=== PATIENT | female | born 2000 | race Caucasian/White ===

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

== ENCOUNTER 2021-05-18 12:11 | Emergency (ER) | payer OTHER ==
[2021-05-18 12:20] VITALS: TEMP 98.7
--- NOTE | 2021-05-18 12:26 | ED ---
General Adult HPI - General Source: EMS (And patient's roommate) Mode of arrival: EMS Limitations: no limitations <Lamine Marsh - Last Filed: 05/18/21 14:38> <Manfred Szymanski - Last Filed: 05/18/21 16:07> - General Chief complaint: Altered Mental Status Stated complaint: Altered Mental Status Time Seen by Provider: 05/18/21 12:17 - History of Present Illness Initial comments: Patient is a pleasant 21-year-old female presenting to the emergency department with change in mental status. Patient's roommate was unable to wake her up today. They did find a bottle of Lexapro with approximately 20 missing. Patient is not verbal at this time and provides no additional history. Roommate states patient has been depressed recently. No reported trauma. (Lamine Marsh) - Related Data Home Medications Medication Instructions Recorded Confirmed Escitalopram [Lexapro] 10 mg PO DAILY 05/18/21 05/18/21 Levonor 0.15mg-Ee 20-25-30 Mcg 1 tab PO DAILY 05/18/21 05/18/21 Allergies Allergy/AdvReac Type Severity Reaction Status Date / Time Penicillins Allergy Swelling Verified 12/17/20 22:47 Review of Systems ROS Other: All systems not noted in ROS Statement are negative. Limitations: ROS unobtainable due to patients medical condition <Lamine Marsh - Last Filed: 05/18/21 14:38> ROS Other: All systems not noted in ROS Statement are negative. <Manfred Szymanski - Last Filed: 05/18/21 16:07> ROS Statement: Those systems with pertinent positive or pertinent negative responses have been documented in the HPI. Past Medical History Past Medical History: No Reported History History of Any Multi-Drug Resistant Organisms: None Reported Past Surgical History: Tonsillectomy Past Psychological History: No Psychological Hx Reported Smoking Status: Current every day smoker Past Alcohol Use History: None Reported Past Drug Use History: None Reported <Lamine Marsh - Last Filed: 05/18/21 14:38> General Exam Limitations: no limitations General appearance: alert Head exam: Present: atraumatic, normocephalic Eye exam: Present: normal appearance, PERRL Neck exam: Present: normal inspection. Absent: tenderness Respiratory exam: Present: normal lung sounds bilaterally Cardiovascular Exam: Present: regular rate, normal rhythm GI/Abdominal exam: Present: soft. Absent: tenderness Extremities exam: Present: normal inspection Neurological exam: Present: alert, other (Nonverbal. Not following commands.). Absent: motor sensory deficit (Limited exam. No flaccid weakness.) Psychiatric exam: Present: flat affect Skin exam: Present: normal color <Lamine Marsh - Last Filed: 05/18/21 14:38> Course <Manfred Szymanski - Last Filed: 05/18/21 16:07> Vital Signs 05/18/21 12:12 Temperature 98.7 F Pulse Rate 79 Respiratory 18 Rate Blood Pressure 127/77 O2 Sat by Pulse 100 Oximetry - Reevaluation(s) Reevaluation #1: 05/18/21 16:05 Patient was endorsed to me by ED physician Dr. Marsh (secondary to shift change) with the EPS nurse's evaluation still pending. Dr. Marsh has medically cleared the patient. EPS nurse states that they feel that the patient can be safely discharged home at this time with action plan and outpatient psychiatric referral. Will discharge patient home at this time. (Manfred Szymanski) EKG Findings - EKG Comments: EKG Findings:: No sinus rhythm with a rate of 71. MN 128. QRS 80. QT 32. QTC 4:15. Normal axis. Normal QRS. No acute ST change. <Lamine Marsh - Last Filed: 05/18/21 14:38> Medical Decision Making - Lab Data Result diagrams: 05/18/21 12:38 05/18/21 12:38 - Radiology Data Radiology results: report reviewed (Computed tomography scan of the brain reveals no acute process), image reviewed (Chest x-ray shows no acute process) <Lamine Marsh - Last Filed: 05/18/21 14:38> - Lab Data Result diagrams: 05/18/21 12:38 05/18/21 12:38 <Manfred Szymanski - Last Filed: 05/18/21 16:07> - Medical Decision Making Patient reevaluated and is alert and admits to feeling depressed. She states earlier she did not want to wake up. Patient denies any ingestion. Patient cleared for mental health evaluation. (Lamine Marhs) - Lab Data Lab Results 05/18/21 05/18/21 05/18/21 Range/Units 12:38 12:38 12:38 WBC 5.3 (4.0-11.0) k/uL RBC 4.88 (3.80-5.40) m/uL Hgb 14.3 (11.4-16.0) gm/dL Hct 42.5 (34.0-46.0) % MCV 87.1 (80.0-100.0) fL MCH 29.4 (25.0-35.0) pg MCHC 33.7 (31.0-37.0) g/dL RDW 12.7 (11.5-15.5) % Plt Count 266 (150-450) k/uL MPV 8.0 Neutrophils % 49 % Lymphocytes % 36 % Monocytes % 8 % Eosinophils % 4 % Basophils % 0 % Neutrophils # 2.6 (1.3-7.7) k/uL Lymphocytes # 1.9 (1.0-4.8) k/uL Monocytes # 0.4 (0-1.0) k/uL Eosinophils # 0.2 (0-0.7) k/uL Basophils # 0.0 (0-0.2) k/uL PT 11.7 (9.0-12.0) sec INR 1.1 (<1.2) Sodium (137-145) mmol/L Potassium (3.5-5.1) mmol/L Chloride (98-107) mmol/L Carbon Dioxide (22-30) mmol/L Anion Gap mmol/L BUN (7-17) mg/dL Creatinine (0.52-1.04) mg/dL Est GFR (CKD-EPI)AfAm (>60 ml/min/1.73 sqM) Est GFR (CKD-EPI)NonAf (>60 ml/min/1.73 sqM) Glucose (74-99) mg/dL Calcium (8.4-10.2) mg/dL Total Bilirubin (0.2-1.3) mg/dL AST (14-36) U/L ALT (4-34) U/L Alkaline Phosphatase (38-126) U/L Creatine Kinase (30-135) U/L Total Protein (6.3-8.2) g/dL Albumin (3.5-5.0) g/dL HCG, Quant mIU/mL Urine Color Yellow Urine Appearance Clear (Clear) Urine pH 6.5 (5.0-8.0) Ur Specific [place] 1.019 (1.001-1.035) Urine Protein Negative (Negative) Urine Glucose (UA) Negative (Negative) Urine Ketones Negative (Negative) Urine Blood Negative (Negative) Urine Nitrite Negative (Negative) Urine Bilirubin Negative (Negative) Urine Urobilinogen <2.0 (<2.0) mg/dL Ur Leukocyte Esterase Small H (Negative) Urine RBC 1 (0-5) /hpf Urine WBC 2 (0-5) /hpf Ur Squamous Epith Cells 1 (0-4) /hpf Urine Mucus Rare H (None) /hpf Salicylates mg/dL Urine Opiates Screen Not Detected (NotDetected) Ur Oxycodone Screen Not Detected (NotDetected) Urine Methadone Screen Not Detected (NotDetected) Ur Propoxyphene Screen Not Detected (NotDetected) Acetaminophen ug/mL Ur Barbiturates Screen Not Detected (NotDetected) U Tricyclic Antidepress Not Detected (NotDetected) Ur Phencyclidine Scrn Not Detected (NotDetected) Ur Amphetamines Screen Not Detected (NotDetected) U Methamphetamines Scrn Not Detected (NotDetected) U Benzodiazepines Scrn Not Detected (NotDetected) Urine Cocaine Screen Not Detected (NotDetected) U Marijuana (THC) Screen Not Detected (NotDetected) Serum Alcohol mg/dL Coronavirus (PCR) (Not Detectd) 05/18/21 05/18/21 Range/Units 12:38 12:53 WBC (4.0-11.0) k/uL RBC (3.80-5.40) m/uL Hgb (11.4-16.0) gm/dL Hct (34.0-46.0) % MCV (80.0-100.0) fL MCH (25.0-35.0) pg MCHC (31.0-37.0) g/dL RDW (11.5-15.5) % Plt Count (150-450) k/uL MPV Neutrophils % % Lymphocytes % % Monocytes % % Eosinophils % % Basophils % % Neutrophils # (1.3-7.7) k/uL Lymphocytes # (1.0-4.8) k/uL Monocytes # (0-1.0) k/uL Eosinophils # (0-0.7) k/uL Basophils # (0-0.2) k/uL PT (9.0-12.0) sec INR (<1.2) Sodium 138 (137-145) mmol/L Potassium 4.4 (3.5-5.1) mmol/L Chloride 109 H (98-107) mmol/L Carbon Dioxide 20 L (22-30) mmol/L Anion Gap 9 mmol/L BUN 13 (7-17) mg/dL Creatinine 0.67 (0.52-1.04) mg/dL Est GFR (CKD-EPI)AfAm >90 (>60 ml/min/1.73 sqM) Est GFR (CKD-EPI)NonAf >90 (>60 ml/min/1.73 sqM) Glucose 79 (74-99) mg/dL Calcium 9.7 (8.4-10.2) mg/dL Total Bilirubin 0.6 (0.2-1.3) mg/dL AST 31 (14-36) U/L ALT 25 (4-34) U/L Alkaline Phosphatase 59 (38-126) U/L Creatine Kinase 72 (30-135) U/L Total Protein 7.0 (6.3-8.2) g/dL Albumin 4.3 (3.5-5.0) g/dL HCG, Quant <2.4 mIU/mL Urine Color Urine Appearance (Clear) Urine pH (5.0-8.0) Ur Specific [place] (1.001-1.035) Urine Protein (Negative) Urine Glucose (UA) (Negative) Urine Ketones (Negative) Urine Blood (Negative) Urine Nitrite (Negative) Urine Bilirubin (Negative) Urine Urobilinogen (<2.0) mg/dL Ur Leukocyte Esterase (Negative) Urine RBC (0-5) /hpf Urine WBC (0-5) /hpf Ur Squamous Epith Cells (0-4) /hpf Urine Mucus (None) /hpf Salicylates <1.0 mg/dL Urine Opiates Screen (NotDetected) Ur Oxycodone Screen (NotDetected) Urine Methadone Screen (NotDetected) Ur Propoxyphene Screen (NotDetected) Acetaminophen <10.0 ug/mL Ur Barbiturates Screen (NotDetected) U Tricyclic Antidepress (NotDetected) Ur Phencyclidine Scrn (NotDetected) Ur Amphetamines Screen (NotDetected) U Methamphetamines Scrn (NotDetected) U Benzodiazepines Scrn (NotDetected) Urine Cocaine Screen (NotDetected) U Marijuana (THC) Screen (NotDetected) Serum Alcohol <10 mg/dL Coronavirus (PCR) Not Detected (Not Detectd) Disposition Is patient prescribed a controlled substance at d/c from ED?: No <Lamine Mrash - Last Filed: 05/18/21 14:38> Is patient prescribed a controlled substance at d/c from ED?: No Time of Disposition: 16:07 <Manfred Szymanski - Last Filed: 05/18/21 16:07> Clinical Impression: Depression Disposition: HOME SELF-CARE Condition: Stable Instructions (If sedation given, give patient instructions): Depression (DC) Additional Instructions: Return to the ER immediately should you develop thoughts of hurting herself or others, any significant pain, shortness of breath, feeling dizzy or faint, or new or worsening symptoms. Follow up closely with your primary care provider, as well as psychiatry. Referrals: Hunter Batres MD [STAFF PHYSICIAN] - 1-2 days
[2021-05-18 12:49] LABS: Basophils % (A) 0 %; Eosinophils # (A) 0.2 k/uL (0-0.7); Eosinophils % (A) 4 %; HCT 42.5 % (34.0-46.0); HGB 14.3 gm/dL (11.4-16.0); Lymphocytes # (A) 1.9 k/uL (1.0-4.8); Lymphocytes % (A) 36 %; MCH 29.4 pg (25.0-35.0); MCHC 33.7 g/dL (31.0-37.0); MCV 87.1 fL (80.0-100.0); Monocytes # (A) 0.4 k/uL (0-1.0); Monocytes % (A) 8 %; Neutrophils # (A) 2.6 k/uL (1.3-7.7); Neutrophils % (A) 49 %; Platelet Count 266 k/uL (150-450); RBC 4.88 m/uL (3.80-5.40); RDW 12.7 % (11.5-15.5); WBC 5.3 k/uL (4.0-11.0)
[2021-05-18 12:51] LABS: Appearance,Urine Clear (Clear); Bilirubin,Urine Negative (Negative); Blood,Urine Negative (Negative); Color,Urine Yellow; Glucose,Urine (UA) Negative (Negative); Ketones,Urine Negative (Negative); Leukocyte Esterase,Urine Small (Negative); Mucus,Urine Rare /hpf; Nitrite,Urine Negative (Negative); PH, Urine 6.5 (5.0-8.0); Protein,Urine Negative (Negative); RBC,Urine 1 /hpf (0-5); Specific Gravity,Urine 1.019 (1.001-1.035); Squamous Epithelial Cell,Urine 1 /hpf (0-4); Urobilinogen,Urine <2.0 mg/dL (<2.0); WBC,Urine 2 /hpf (0-5)
[2021-05-18 12:54] LABS: INR 1.1 (<1.2); Prothrombin Time 11.7 sec (9.0-12.0)
[2021-05-18 13:01] LABS: ALT 25 U/L (4-34); AST 31 U/L (14-36); Acetaminophen <10.0 ug/mL; African American GFR (CKD) >90 (>60 ml/min/1.73 sqM); Albumin 4.3 g/dL (3.5-5.0); Alcohol <10 mg/dL; Alkaline Phosphatase 59 U/L (38-126); Anion Gap 9 mmol/L; Blood Urea Nitrogen 13 mg/dL (7-17); Calcium 9.7 mg/dL (8.4-10.2); Carbon Dioxide 20 mmol/L (22-30); Chloride 109 mmol/L (98-107); Creatine Kinase 72 U/L (30-135); Glucose 79 mg/dL (74-99); Non-African American GFR(CKD) >90 (>60 ml/min/1.73 sqM); Potassium 4.4 mmol/L (3.5-5.1); Salicylate <1.0 mg/dL; Sodium 138 mmol/L (137-145); Total Bilirubin 0.6 mg/dL (0.2-1.3)
[2021-05-18 13:03] LABS: Amphetamine Screen,Urine Not Detected (NotDetected); Barbiturate Screen,Urine Not Detected (NotDetected); Benzodiazepines Screen,Urine Not Detected (NotDetected); Cocaine Screen,Urine Not Detected (NotDetected); Methadone Screen, Urine Not Detected (NotDetected); Opiate Screen,Urine Not Detected (NotDetected); Oxycodone Screen, Urine Not Detected (NotDetected); Phencyclidine Screen,Urine Not Detected (NotDetected); Tricyclic Antidepressant,Urine Not Detected (NotDetected); Urn Cannabinoid Scrn Not Detected (NotDetected)
--- NOTE | 2021-05-18 13:03 | XR ---
EXAMINATION TYPE: XR chest 1V portable DATE OF EXAM: 05/18/2021 COMPARISON: NONE HISTORY: Acute mental status change. TECHNIQUE: Single frontal view of the chest is obtained. FINDINGS: There is no focal air space opacity, pleural effusion, or pneumothorax seen. The cardiac silhouette size is within normal limits. The osseous structures are intact. IMPRESSION: No acute process.
[2021-05-18 13:16] LABS: HCG,Quantitative Serum <2.4 mIU/mL
--- NOTE | 2021-05-18 14:27 | CT ---
EXAMINATION TYPE: CT brain wo con DATE OF EXAM: 05/18/2021 COMPARISON: None available HISTORY: AMS CT DLP: 1094.4 mGycm. Automated Exposure Control for Dose Reduction was Utilized. TECHNIQUE: Multiple contiguous axial CT images of the head were performed from the skull base through the vertex without the administration of intravenous contrast. 2-D sagittal and coronal reformats we re obtained. FINDINGS: No acute intracranial hemorrhage, mass effect, or midline shift. The ventricles and sulci are within normal limits in size. Gonzalez-white differentiation is preserved. No CT evidence of acute l arge vessel territorial ischemia. Calvarium appears intact. The globes are intact and the visualized sinuses are clear. Mildly prominent adenoid tissue. IMPRESSION: Negative contrast enhanced head CT exam.
[2021-05-18 16:18] VITALS: BP 113/72; PULSE 71; RESP 18
== END 2021-05-18 16:20 | disposition home or self-care (01) ==
LOC: EC 12:11
DX: F32.9 Major depressive disorder, single episode, unspecified (principal); F17.200 Nicotine dependence, unspecified, uncomplicated; Z88.0 Allergy status to penicillin
CPT/HCPCS: 36415; 70450; 71045; 80053; 80143; 80179; 80306; 80320; 81001; 82550; 84702; 85025; 85610; 87635; 93005; 99285

== ENCOUNTER → 2021-07-21 | Outpatient (CLI) | payer OTHER ==
--- NOTE | 2021-07-21 18:48 | US ---
EXAMINATION TYPE: Ultrasound OB <= 14 week fetus DATE OF EXAM: 07/21/2021 2:40 PM COMPARISON: NONE CLINICAL HISTORY: 21-year-old female Z36 Confirm dates. EXAM PERFORMED: Transabdominal (TA) FINDINGS: EXAM MEASUREMENTS: GESTATIONAL AGE / DATING Physician Established: Not yet established Dates by LMP: (7 weeks/6 days) EDC: 03-03-21 Dates by First Scan: No previous this is first scan Dates by Current Scan for: (7 weeks/4 days) EDC: 03-05-21 MATERNAL ANATOMY Uterus: 9.2 x 4.7 x 6.6cm Right Ovary: 2.1 x 1.9 x 1.6cm Left Ovary: 2.9 x 1.9 x 1.6cm Post CDS / Adnexa: wnl Presence of free fluid: no GESTATION / SURVEY CRL: 1.4cm (7 weeks/4 days) Yolk Sac (normal less than 6mm): 3mm Heart Rate: 167 bpm Rhythm: Normal IUP: Viable IUP Age Appropriate Anatomy Cord Insertion: Too early to visualize Limbs: Too early to visualize Calvarium: Too early to visualize Date of LMP: 05-27-21 Beta HcG (if available): Not available at this time IMPRESSION: 1. Single live intrauterine with estimated gestational age of 7 weeks 6 days by LMP. Curren t ultrasound biometry is concordant (7 weeks 4 days) by CRL. 2. Complete survey recommended at 18-20 weeks.
== END | disposition home or self-care (01) ==
LOC: RADUSWWP 14:22
PROVIDERS: ATTEND Obstetrics & Gynecology
DX: Z36.87 Encounter for antenatal screening for uncertain dates (principal); Z3A.01 Less than 8 weeks gestation of pregnancy
CPT/HCPCS: 76801

== ENCOUNTER 2021-07-23 08:15 | Emergency (ER) | payer OTHER ==
[2021-07-23 08:38] VITALS: RESP 18; TEMP 98.2
--- NOTE | 2021-07-23 09:24 | ED ---
General Adult HPI - General Chief complaint: Vaginal Bleeding Stated complaint: 8wks preg/Vaginal bleeding Time Seen by Provider: 07/23/21 08:47 Source: patient, RN notes reviewed Mode of arrival: ambulatory Limitations: no limitations - History of Present Illness Initial comments: 21-year-old female presents to the emergency room for a chief complaint of vaginal bleeding. Patient is 8 weeks . Patient states she woke up this morning and went to work. She noticed there was some blood in her underwear. States it looked like she started her period. Patient denies any abdominal pain. Patient states she did have a confirmed intrauterine . This is her first .Patient has no other complaints at this time including shortness of breath, chest pain, abdominal pain, nausea or vomiting, headache, or visual changes. - Related Data Home Medications Medication Instructions Recorded Confirmed Escitalopram [Lexapro] 10 mg PO DAILY 05/18/21 05/18/21 Levonor 0.15mg-Ee 20-25-30 Mcg 1 tab PO DAILY 05/18/21 05/18/21 Allergies Allergy/AdvReac Type Severity Reaction Status Date / Time Penicillins Allergy Swelling Verified 07/23/21 08:38 Review of Systems ROS Statement: Those systems with pertinent positive or pertinent negative responses have been documented in the HPI. ROS Other: All systems not noted in ROS Statement are negative. Past Medical History Past Medical History: No Reported History History of Any Multi-Drug Resistant Organisms: None Reported Past Surgical History: Tonsillectomy Past Psychological History: No Psychological Hx Reported Smoking Status: Current every day smoker Past Alcohol Use History: None Reported Past Drug Use History: None Reported General Exam Limitations: no limitations General appearance: alert, in no apparent distress Head exam: Present: atraumatic Eye exam: Present: normal appearance, PERRL, EOMI. Absent: scleral icterus, conjunctival injection ENT exam: Present: normal exam, mucous membranes moist Neck exam: Present: normal inspection, full ROM. Absent: tenderness Respiratory exam: Present: normal lung sounds bilaterally. Absent: respiratory distress, wheezes Cardiovascular Exam: Present: regular rate, normal rhythm, normal heart sounds GI/Abdominal exam: Present: soft, normal bowel sounds. Absent: distended, tenderness External exam: Present: normal external exam. Absent: erythema, swelling, lesions, lacerations, ecchymosis Speculum exam: Present: vaginal bleeding (Minimal bleeding noted). Absent: normal speculum exam, erythema, vaginal discharge, cervical discharge, foreign body Course Vital Signs 07/23/21 08:34 Temperature 98.2 F Pulse Rate 84 Respiratory 18 Rate Blood Pressure 102/66 O2 Sat by Pulse 99 Oximetry Medical Decision Making - Medical Decision Making vital vitalss stable. CBC CMP unremarkable. Urinalysis shows her bacteria which will be treated given recommendations of treating asymptomatic bacteria and . Trichomonas is negative. A+ blood type. ultrasound does show a viable single IUP with a possible small subchorionic bleed versus implantation bleed measuring 1.2 cm. this time. He can be discharged home to follow up with OB. She will return here for any worsening symptoms. - Lab Data Result diagrams: 07/23/21 09:29 07/23/21 09:29 Lab Results 07/23/21 07/23/21 07/23/21 Range/Units 09:15 09:29 09:29 WBC 7.9 (4.0-11.0) k/uL RBC 4.41 (3.80-5.40) m/uL Hgb 12.8 (11.4-16.0) gm/dL Hct 37.6 (34.0-46.0) % MCV 85.2 (80.0-100.0) fL MCH 29.0 (25.0-35.0) pg MCHC 34.0 (31.0-37.0) g/dL RDW 13.2 (11.5-15.5) % Plt Count 252 (150-450) k/uL MPV 8.1 Neutrophils % 75 % Lymphocytes % 18 % Monocytes % 4 % Eosinophils % 2 % Basophils % 0 % Neutrophils # 5.9 (1.3-7.7) k/uL Lymphocytes # 1.4 (1.0-4.8) k/uL Monocytes # 0.3 (0-1.0) k/uL Eosinophils # 0.1 (0-0.7) k/uL Basophils # 0.0 (0-0.2) k/uL Sodium (137-145) mmol/L Potassium (3.5-5.1) mmol/L Chloride (98-107) mmol/L Carbon Dioxide (22-30) mmol/L Anion Gap mmol/L BUN (7-17) mg/dL Creatinine (0.52-1.04) mg/dL Est GFR (CKD-EPI)AfAm (>60 ml/min/1.73 sqM) Est GFR (CKD-EPI)NonAf (>60 ml/min/1.73 sqM) Glucose (74-99) mg/dL Calcium (8.4-10.2) mg/dL Total Bilirubin (0.2-1.3) mg/dL AST (14-36) U/L ALT (4-34) U/L Alkaline Phosphatase (38-126) U/L Total Protein (6.3-8.2) g/dL Albumin (3.5-5.0) g/dL Urine Color Yellow Urine Appearance Cloudy H (Clear) Urine pH 7.5 (5.0-8.0) Ur Specific [place] 1.023 (1.001-1.035) Urine Protein 1+ H (Negative) Urine Glucose (UA) Negative (Negative) Urine Ketones Negative (Negative) Urine Blood Moderate H (Negative) Urine Nitrite Negative (Negative) Urine Bilirubin Negative (Negative) Urine Urobilinogen <2.0 (<2.0) mg/dL Ur Leukocyte Esterase Trace H (Negative) Urine RBC 2 (0-5) /hpf Urine WBC 6 H (0-5) /hpf Ur Squamous Epith Cells 4 (0-4) /hpf Amorphous Sediment Rare H (None) /hpf Urine Bacteria Rare H (None) /hpf Urine Mucus Occasional H (None) /hpf Trichomonas Ag (Rapid) (Negative) Blood Type A Positive Blood Type Recheck No Previous Record Bld Type Recheck Status ABR ONLY 07/23/21 07/23/21 Range/Units 09:29 09:29 WBC (4.0-11.0) k/uL RBC (3.80-5.40) m/uL Hgb (11.4-16.0) gm/dL Hct (34.0-46.0) % MCV (80.0-100.0) fL MCH (25.0-35.0) pg MCHC (31.0-37.0) g/dL RDW (11.5-15.5) % Plt Count (150-450) k/uL MPV Neutrophils % % Lymphocytes % % Monocytes % % Eosinophils % % Basophils % % Neutrophils # (1.3-7.7) k/uL Lymphocytes # (1.0-4.8) k/uL Monocytes # (0-1.0) k/uL Eosinophils # (0-0.7) k/uL Basophils # (0-0.2) k/uL Sodium 135 L (137-145) mmol/L Potassium 4.0 (3.5-5.1) mmol/L Chloride 107 (98-107) mmol/L Carbon Dioxide 21 L (22-30) mmol/L Anion Gap 7 mmol/L BUN 7 (7-17) mg/dL Creatinine 0.49 L (0.52-1.04) mg/dL Est GFR (CKD-EPI)AfAm >90 (>60 ml/min/1.73 sqM) Est GFR (CKD-EPI)NonAf >90 (>60 ml/min/1.73 sqM) Glucose 78 (74-99) mg/dL Calcium 9.4 (8.4-10.2) mg/dL Total Bilirubin 0.4 (0.2-1.3) mg/dL AST 22 (14-36) U/L ALT 12 (4-34) U/L Alkaline Phosphatase 50 (38-126) U/L Total Protein 6.5 (6.3-8.2) g/dL Albumin 3.8 (3.5-5.0) g/dL Urine Color Urine Appearance (Clear) Urine pH (5.0-8.0) Ur Specific [place] (1.001-1.035) Urine Protein (Negative) Urine Glucose (UA) (Negative) Urine Ketones (Negative) Urine Blood (Negative) Urine Nitrite (Negative) Urine Bilirubin (Negative) Urine Urobilinogen (<2.0) mg/dL Ur Leukocyte Esterase (Negative) Urine RBC (0-5) /hpf Urine WBC (0-5) /hpf Ur Squamous Epith Cells (0-4) /hpf Amorphous Sediment (None) /hpf Urine Bacteria (None) /hpf Urine Mucus (None) /hpf Trichomonas Ag (Rapid) Negative (Negative) Blood Type Blood Type Recheck Bld Type Recheck Status Disposition Clinical Impression: Vaginal bleeding during , Threatened miscarriage Disposition: HOME SELF-CARE Condition: Good Instructions (If sedation given, give patient instructions): Threatened Miscarriage (ED) Additional Instructions: please follow-up with your OB by calling today for an appointment. Return to the emergency room for any worsening symptoms. Is patient prescribed a controlled substance at d/c from ED?: No Referrals: Josh Metz MD [Primary Care Provider] - 1-2 days Abdirashid Cruz MD [STAFF PHYSICIAN] - 1-2 days Time of Disposition: 10:35
[2021-07-23 09:36] LABS: Basophils % (A) 0 %; Eosinophils # (A) 0.1 k/uL (0-0.7); Eosinophils % (A) 2 %; HCT 37.6 % (34.0-46.0); HGB 12.8 gm/dL (11.4-16.0); Lymphocytes # (A) 1.4 k/uL (1.0-4.8); Lymphocytes % (A) 18 %; MCV 85.2 fL (80.0-100.0); Mean Platelet Volume 8.1; Monocytes # (A) 0.3 k/uL (0-1.0); Monocytes % (A) 4 %; Neutrophils # (A) 5.9 k/uL (1.3-7.7); Neutrophils % (A) 75 %; Platelet Count 252 k/uL (150-450); RBC 4.41 m/uL (3.80-5.40); RDW 13.2 % (11.5-15.5); WBC 7.9 k/uL (4.0-11.0)
[2021-07-23 09:49] LABS: Amorphous Sediment,Urine Rare /hpf; Appearance,Urine Cloudy (Clear); Bacteria,Urine Rare /hpf; Bilirubin,Urine Negative (Negative); Blood,Urine Moderate (Negative); Color,Urine Yellow; Glucose,Urine (UA) Negative (Negative); Ketones,Urine Negative (Negative); Leukocyte Esterase,Urine Trace (Negative); Mucus,Urine Occasional /hpf; Nitrite,Urine Negative (Negative); PH, Urine 7.5 (5.0-8.0); Protein,Urine 1+ (Negative); RBC,Urine 2 /hpf (0-5); Specific Gravity,Urine 1.023 (1.001-1.035); Squamous Epithelial Cell,Urine 4 /hpf (0-4); Urobilinogen,Urine <2.0 mg/dL (<2.0); WBC,Urine 6 /hpf (0-5)
[2021-07-23 09:53] LABS: ALT 12 U/L (4-34); AST 22 U/L (14-36); African American GFR (CKD) >90 (>60 ml/min/1.73 sqM); Albumin 3.8 g/dL (3.5-5.0); Alkaline Phosphatase 50 U/L (38-126); Anion Gap 7 mmol/L; Blood Urea Nitrogen 7 mg/dL (7-17); Calcium 9.4 mg/dL (8.4-10.2); Carbon Dioxide 21 mmol/L (22-30); Chloride 107 mmol/L (98-107); Glucose 78 mg/dL (74-99); Non-African American GFR(CKD) >90 (>60 ml/min/1.73 sqM); Sodium 135 mmol/L (137-145); Total Bilirubin 0.4 mg/dL (0.2-1.3); Total Protein 6.5 g/dL (6.3-8.2)
--- NOTE | 2021-07-23 10:22 | US ---
EXAMINATION TYPE: Transabdominal DATE OF EXAM: 07/23/2021 10:00 AM COMPARISON: US 2 days ago CLINICAL HISTORY: pain. Bleeding x 1 day, 1 EXAM PERFORMED: Transabdominal (TA) EXAM MEASUREMENTS: GESTATIONAL AGE / DATING Physician Established: ( 8 weeks/1 days) EDC: 03/03/2022 Dates by LMP: (8 weeks/1 days) EDC: 03/03/2022 Dates by First Scan: ( 7 weeks/6 days) EDC: 03/05/2022 Dates by Current Scan for: (8 weeks/0 days) EDC: 03/04/2022 MATERNAL ANATOMY Uterus: 8.2 x 6.1 x 7.3cm Right Ovary: 3.0 x 1.8 x 2.0cm Left Ovary: 2.1 x 1.4 x 1.8cm Post CDS / Adnexa: wnl Presence of free fluid: wnl Presence of corpus luteal cyst: not seen Presence of subchorionic bleed: 1.2 x 0.7 x 0.7cm right of gestational sac GESTATION / SURVEY CRL: 1.6cm (8 weeks/0 days) Yolk Sac (normal less than 6mm): 3.6mm Heart Rate: 163 bpm Rhythm: Normal IUP: Viable IUP Date of LMP: 05/27/2021 Beta HcG (if available): Not available at time of exam Viable single IUP measuring 8 week 0 days with a heart rate of 163bpm and an estimated delivery date of 03/04/2022, small possible subchorionic bleed measuring 1.2cm Persistent anteverted uterus. Persistent single live intrauterine gestation as gestational sac, yolk sac, and pole redemonstrated. No free fluid. Tiny fluid collection adjacent to gestational sac measures near 1.0 cm, suspect tiny implantation bleed or subchorionic hemorrhage not clearly seen on prior. Both ovaries redemonstrated. No suspicious adnexal masses. IMPRESSION: As above.
[2021-07-23 10:52] VITALS: BP 104/69; PULSE 66
[2021-07-25 13:45] LABS: C. trachomatis,PCR Negative (Neg,Equiv); Chlamydia trachomatis Source Vagina; N. gonorrhoeae,PCR Negative (Neg,Equiv); Neisseria Source Vagina
== END 2021-07-23 10:51 | disposition home or self-care (01) ==
LOC: EC 08:15
DX: O20.0 Threatened abortion (principal); O99.331 Smoking (tobacco) complicating pregnancy, first trimester; F17.200 Nicotine dependence, unspecified, uncomplicated; Z3A.08 8 weeks gestation of pregnancy; Z88.0 Allergy status to penicillin; Z90.89 Acquired absence of other organs
CPT/HCPCS: 36415; 76801; 80053; 81001; 84702; 85025; 86900; 86901; 87491; 87591; 87808; 99284

== ENCOUNTER → 2021-10-15 | Outpatient (CLI) | payer OTHER ==
--- NOTE | 2021-10-15 14:50 | US ---
EXAMINATION TYPE: US OB anatomy transabd DATE OF EXAM: 10/15/2021 COMPARISON: US'S dated 07/21/2021 & 07/23/2021 HISTORY: O36.62X0 LARGE FOR DATES TECHNIQUE: Transabdominal (TA) EXAM MEASUREMENTS: GESTATIONAL AGE / DATING Physician Established: (20 weeks/1 days) EDC: 03/03/2022 Dates by LMP: (20 weeks/1 days) EDC: 03/03/2022 Dates by First Scan: (19 weeks/6 days) EDC: 03/05/2022 Dates by Current Scan for: (20 weeks/1 days) EDC: 03/03/2022 SURVEY IUP: Single PLACENTA: Posterior PREVIA: No previa JOS: 10.9 cm Normal CERVICAL LENGTH (transabdominal: norm > 3.0cm): 3.8 cm BIOMETRY PRESENTATION: Breech BPD: 4.6 cm 19 weeks / 6 days HC: 17.4 cm 19 weeks / 6 days AC: 15.9 cm 21 weeks / 0 days FL: 3.5 cm 20 weeks / 6 days ESTIMATED WEIGHT IN GRAMS: 380 grams ESTIMATED WEIGHT IN LBS/OZ: 0 lbs. 13 oz. WEIGHT PERCENTAGE BASED ON ESTABLISHED DATE: 82.3 % HC/AC: 1.09 Normal FL/AC: 21.7 Normal HEART RATE: 135 bpm RHYTHM: Normal ANATOMY SEEN (within normal limits): * Lateral Vent (< 1 cm) 0.7 cm * Cisterna Magna (< 1.1 cm) 0.5 cm * Nuchal Fold (< 0.6 cm) 0.3 cm * Cerebellum (varies with age) 2.2 cm Choroid Plexus (bilateral) Midline Falx Cavus Septi Pellucidi Four Chamber Heart Outflow tracts: LVOT/RVOT Stomach Situs Nose / Lips Diaphragm Bladder Cord Insert Three Vessel Cord Longitudinal Spine Transverse Spine Arms (bilateral) Legs (bilateral) ANATOMY SEEN (does not appear within normal limits): Kidneys (bilateral) , only left kidney definitely identified. Baby is spine down breech and difficult to image the kidney area. IMPRESSION: Limited study given breech presentation. Poor visualization of the right kidney. Repeat imaging recom mended.
== END | disposition home or self-care (01) ==
LOC: RADUSWWP 13:40
PROVIDERS: ATTEND Obstetrics & Gynecology
DX: O36.62X0 Maternal care for excessive fetal growth, second trimester, not applicable or unspecified (principal); Z3A.20 20 weeks gestation of pregnancy
CPT/HCPCS: 76811

== ENCOUNTER → 2021-10-30 | Outpatient (CLI) | payer OTHER ==
--- NOTE | 2021-10-31 07:33 | US ---
EXAMINATION TYPE: US OB Call Back DATE OF EXAM: 10/30/2021 COMPARISON: US CLINICAL HISTORY: Z36.2 Follow up for anotomy (kidney). Follow up/ call back. GESTATIONAL AGE / DATING Dates by Initial Survey Scan: (22 weeks/0 days) EDC: 03/05/2022 HEART RATE: 147 bpm RHYTHM: Normal ANATOMY SEEN (second anatomic survey look): Kidneys (bilateral): Bilateral kidneys imaged on today's scan. IMPRESSION: Bilateral kidneys appear unremarkable.
== END | disposition home or self-care (01) ==
LOC: RADUSWWP 13:38
PROVIDERS: ATTEND Obstetrics & Gynecology
DX: Z53.9 Procedure and treatment not carried out, unspecified reason (principal)

== ENCOUNTER 2021-11-19 03:26 | Outpatient (CLI) | payer OTHER ==
[2021-11-19 04:14] LABS: Appearance,Urine Clear (Clear); Bacteria,Urine Rare /hpf; Bilirubin,Urine Negative (Negative); Blood,Urine Negative (Negative); Color,Urine Yellow; Glucose,Urine (UA) Negative (Negative); Ketones,Urine 1+ (Negative); Leukocyte Esterase,Urine Small (Negative); Nitrite,Urine Negative (Negative); Protein,Urine Negative (Negative); RBC,Urine <1 /hpf (0-5); Specific Gravity,Urine 1.011 (1.001-1.035); Squamous Epithelial Cell,Urine <1 /hpf (0-4); Urobilinogen,Urine <2.0 mg/dL (<2.0); WBC,Urine 7 /hpf (0-5)
[2021-11-19 04:41] VITALS: BP 131/61; PULSE 111; RESP 16; TEMP 98.5
--- NOTE | 2021-11-19 08:54 | P.MSEPDOC ---
Presenting Problems - Arrival Data Date of Arrival on Unit: 11/19/21 Time of Arrival on Unit: 03:26 Mode of Transport: Ambulatory - Complaint OB-Reason for Admission/Chief Complaint: Pain Medical History - Information : 1 Para: 0 Term: 0 : 0 Abortions: Spontaneous or Elective: 0 Number of Living Children: 0 - Gestational Age Gestational Age by PENNY (wks/days): 25 Weeks and 1 Days Review of Systems - Review of Systems Constitutional: No problems Breast: No problems ENT: No problems Cardiovascular: No problems Respiratory: No problems Gastrointestinal: No problems Genitourinary: No problems Musculoskeletal: No problems Neurological: No problems Skin: No problems Vital Signs - Temperature Temperature: 98.5 F Temperature Source: Oral - Pulse Right Brachial Pulse Rate: 111 Pulse Assessment Method: Automatic Cuff - Respirations Respiratory Rate: 16 Oxygen Delivery Method: Room Air - Blood Pressure Right Arm Blood Pressure: 131/61 Blood Pressure Mean: 84 Blood Pressure Source: Automatic Cuff Physician Notification - Physician Notified Physician Notified Date: 11/19/21 Physician Notified Time: 04:20 Physician: Yvonne Morales - Notification Comment Comment: Katie Coates, RN spoke with Dr. Morales regaurding patients c/o right sided rib pain and negative u/a. Patient apprived for discharge to follow up with chiropractor, take tylenol, and use heating pad as needed. Maternal Triage Index - Stat/Priority 1 Stat Priority 1: No - Urgent/Priority 2 Urgent Priority 2: No - Prompt/Priority 3 Prompt Priority 3: No - Non-Urgent/Priority 4 Non-Urgent Priority 4: Yes Criteria Met for Priority 4: patient presents with right rib pain - Scheduled/Requesting Priority 5 Scheduled/Requesting Priority 5: No Disposition - Disposition OB Disposition: Discharge to home Discharge Date: 11/19/21 Discharge Time: 04:30 I agree with the RN Medical Screening Exam: Yes Case reviewed; plan agreed upon as documented in EMR&OBIX.: Yes Diagnosis: OTH SYMPTOMS AND SIGNS INVOLVING THE MUSCULOSKELETAL SYSTEM
== END 2021-11-19 04:30 ==
LOC: FBPOP 03:26
PROVIDERS: ATTEND Obstetrics & Gynecology
DX: O26.892 Other specified pregnancy related conditions, second trimester (principal); R07.81 Pleurodynia; Z3A.25 25 weeks gestation of pregnancy; Z88.0 Allergy status to penicillin
CPT/HCPCS: 81001; 99213